=== PATIENT | female | born 1970 | race Caucasian/White ===

== ENCOUNTER 2017-05-05 11:52 | Emergency (ER) | payer OTHER ==
[2017-05-05 12:03] VITALS: TEMP 97.9
[2017-05-05] MEDS ORDERED: HYDROmorphONE/DILAUDID 1 MG/ML SYR ONE (12:29)
[2017-05-05] MEDS ORDERED: ONDANSETRON 4 MG/2 ML VIAL ONE (12:29)
[2017-05-05] MEDS ORDERED: HYDROmorphONE/DILAUDID 1 MG/ML SYR IVP ONE (12:31)
[2017-05-05] MEDS ORDERED: ONDANSETRON 4 MG/2 ML VIAL IVP ONE (12:31)
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
[2017-05-05] MEDS ORDERED: CLINDAMYCIN 900 MG/DEXTROSE 50 ML IV ONE (15:59)
[2017-05-05 16:22] VITALS: BP 132/60; PULSE 58; RESP 16; O2SAT 98
[2017-05-05] MEDS ORDERED: OXYCODONE/APAP 5/325 TAB PO ONE (16:42)
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
[2017-05-05] MEDS ORDERED: OXYCODONE/APAP 5/325 TAB ONE (16:43)
== END 2017-05-05 17:35 | disposition home or self-care (01) ==
LOC: EDUNIT#
PROC: 0CQ0XZZ Repair Upper Lip, External Approach (ICD-10-PCS; principal; 2017-05-05)
PROC: 0CQ1XZZ Repair Lower Lip, External Approach (ICD-10-PCS; principal; 2017-05-05)
PROC: 0CQ6XZZ Repair Lower Gingiva, External Approach (ICD-10-PCS; principal; 2017-05-05)
DX: S01.511A Laceration without foreign body of lip, initial encounter (principal); V18.0XXA Pedal cycle driver injured in noncollision transport accident in nontraffic accident, initial encounter; Y99.8 Other external cause status; Y93.55 Activity, bike riding
CPT/HCPCS: 96365; J1170; J2405